=== PATIENT | female | born 1935 | race Caucasian/White ===

== ENCOUNTER → 2017-08-09 | Outpatient (CLI) | payer OTHER ==
[~2017-08-09] VITALS: Ht 165.1 cm; Wt 65.8 kg
[~2017-08-09] MED LIST: BIOTIN1000 MCG PO; CIPROFLOXACIN500 M1 PO; COZAAR100 MG PO; GLUCOPHAGE500 MG PO; HYDRALAZINE 10M10 MG PO; HYDROXYCHLOROQ200 M1 PO; INDAPAMIDE1.25 MG PO; MACROBID 100 M100 M1 PO; NORCO 5-325 TA1 EACH PO; ORADENT 0.1% DEN5 G1 TOP; PREVACID15 MG PO; PROBIOTIC1 EAC1 PO; PROTONIX40 M1 PO; PYRIDIUM200 MG PO; SIMVASTATIN20 MG PO; VITAMIN D31000 UNIT PO; ZOFRAN ODT4 MG PO
--- NOTE | ~2017-08-09 | P ---
[facility] [place] [address] PROCEDURE REPORT Name: ALINE GAMEZ Room #: REG MARTI Leanne.#: [id number] Admission: 08/09/17 Attend Phys: Drew Galdamez MD Discharge: Date of : 37 Report #: [id number] THIS REPORT FOR: //name// CC: Drew Garcias BRIEF HISTORY: The patient is an 81-year-old woman for screening colonoscopy. Last colonoscopy was more than 5 years ago. There is a questionable history of colon cancer in her brother in his 70s. She is not certain of the specific diagnosis. She also has had recurrent bouts of diverticulitis, with most recent episode in May of this past year. PREOPERATIVE DIAGNOSIS: Screening colonoscopy. POSTOPERATIVE DIAGNOSES: 1. Multiple colon polyps. 2. Moderately severe sigmoid diverticulosis coli. MEDICATIONS: Deep sedation with propofol per Anesthesia. SPECIMEN: 1. Polyp from hepatic flexure. 2. Polyp from splenic flexure. 3. Polyps x 2 at 40 cm. ESTIMATED BLOOD LOSS: 3 mL. PROCEDURE: Colonoscopy to cecum and terminal ileum with snare polypectomy and biopsy. FINDINGS: Prior to propofol sedation, the procedure of colonoscopy was discussed with the patient as well as potential risks and its complications. She indicates she understands and desires to proceed. DESCRIPTION OF PROCEDURE: With the patient in left lateral decubitus position, digital examination was completed which revealed no abnormalities. Subsequently, the [place] video colonoscope was introduced into the rectum and advanced under direct vision to the cecum. This was done with some difficulty as she had a difficult sigmoid colon which was fairly rigid. With some difficulty, we were able to advance the scope through the sigmoid colon into the proximal colon. The cecum was identified by the ileocecal valve and the appendiceal orifice. We were able to advance the tip of the scope to the mouth of the ileocecal valve, but could not cross the ileocecal valve due to looping of the scope. At that point, the scope was slowly withdrawn and careful circumferential views obtained. The prep was excellent. The mucosa was within normal limits, normal vascular pattern, normal light reflex. As we withdrew the [facility] [address] [place] [address] PROCEDURE REPORT Name: ALINE GAMEZ Room #: [facility]#: [id number] Admission: 08/09/17 Attend Phys: Drew Galdamez MD Discharge: Date of : 37 Report #: [id number] scope, she was noted to have normal appearing colonic mucosa. An occasional diverticulum was seen in the proximal colon, but extensive diverticular disease was not seen in the proximal colon. At the hepatic flexure, sessile 5-6 mm polyp was seen and removed by cold snare polypectomy. The scope was further withdrawn, and at splenic flexure, diminutive polyp seen and removed by biopsy. Upon further withdrawal of the scope, at 40 cm, two diminutive polyps were seen and removed by biopsy. Distally to this area, she was noted to have moderately severe diverticular disease without endoscopic evidence of diverticulitis. Again, it was noted that the sigmoid colon was fairly rigid and difficult to maneuver the scope. No active inflammatory disease was seen. Scope was withdrawn in the rectum and upon end view as well as retroflexed views, no abnormalities were seen. Scope was withdrawn. The patient tolerated the procedure well. CONDITION OF THE PATIENT UPON DISCHARGE: Following procedure, the patient drowsy, arousable, conversant and will be discharged home when fully ambulatory. INSTRUCTIONS TO THE PATIENT AND FAMILY AT THE TIME OF DISCHARGE: Four small polyps had identified and removed as described above. We will follow up on the path. If 3 or more adenomas, she should return in 3 years, if one or two, consider 5 years, if none, 10 years. However, as far as 5 and10 years, based on the patient's clinical status at that point in the future. She does have a fairly rigid sigmoid colon. She reports multiple episodes of diverticulitis. She was advised to have surgery, but has declined to do so at this point in time. We will see if we can obtain records from her previous admissions for diverticulitis, and I will be happy to see her in the office to further discuss. She does describe some discomfort. Constipation may be part of the problem. I suggest high fiber diet. I also suggest MiraLax daily as needed. I would wonder if adhesions from previous hysterectomy is a problem as well as she does have a fairly rigid sigmoid colon. <ELECTRONICALLY SIGNED> By: Drew Galdamez MD 08/09/17 1742 [id number] Drew Galdamez MD /nt
--- NOTE | ~2017-08-09 | S ---
[facility] [place] [address] SURGICAL PATH RPT PROCEDURE Name: CASS CARREON Room #: REG [facility] M.R.#: [id number] Admission: 08/09/17 Date of : 37 Discharge: Report #: [id number] Path Case #: [id number] PATHOLOGY REPORT COLLECTION DATE: 08/09/2017 RECEIVED DATE: 08/09/2017 SUBMITTING PHYS: Dr. Drew Galdamez OTHER PHYS: Dr. Chelsea Garcias SPECIMEN(S) RECEIVED: A.Hepatic flexure polyp B.Splenic flexure polyp C.Polyps at 40 cm x2 * * * * * * * * * * * * FINAL DIAGNOSIS: A. "Hepatic flexure polyp," biopsy: - Tubular adenoma; no high-grade dysplasia. B. "Splenic flexure polyp," biopsy: - Tubular adenoma; no high-grade dysplasia. C. "Polyps at 40 cm x 2," biopsy: - Tubular adenoma; no high-grade dysplasia. (CLW:mgrebecca; 08/11/2017) PATHOLOGIST: Chula Kidd M.D. REPORT ELECTRONICALLY SIGNED BY: Chula Kidd M.D. DATE/TIME: 08/11/2017 15:13 * * * * * * * * * * * * GROSS PATHOLOGY: A. Received in formalin labeled "Cass Carreon, polyp at hepatic flexure," are 4 segments of white to wall soft tissue measuring 1.4 x 0.3 x 0.3 cm in aggregate dimensions and ranging from 0.1 to 0.5 cm in maximum dimension. The specimen is submitted entirely in cassette A1. B. Received in formalin labeled "Cass Carreon, polyp at splenic flexure," are 2 segments of wall soft tissue measuring 0.6 x 0.2 x 0.2 cm in aggregate dimensions and ranging from 0.3 to 0.3 cm in maximum dimension. The specimen is submitted entirely in cassette B1. C. Received in formalin labeled "Cass Carreon, polyp at 40 cm," are 2 segments of wall soft tissue measuring 0.6 x 0.2 x 0.2 cm in aggregate dimensions and ranging from 0.2 to 0.4 cm in maximum dimension. The specimen is submitted entirely in cassette C1. (JOYCE; 08/10/2017) [address] [place] [address] SURGICAL PATH RPT PROCEDURE Name: CASS CARREON Room #: REG [facility]..#: [id number] Admission: 08/09/17 Date of : 37 Discharge: Report #: [id number] Path Case #: [id number] CLINICAL HISTORY: Diverticulitis, colon polyps, diverticulosis INITIAL CPT CODE(S): A; 84466 B; 12409 C; 36988 Professional services performed by [facility] at [address], [place] [address] Technical services performed by [facility] at [address] [place] [address], [address], [place] [address]. [facility] [address] [address] PHONE: [phone] DIRECTOR: Amanuel Alvarez M.D. * * * END OF REPORT * * *
== END | disposition home or self-care (01) ==
LOC: GI 08:52
DX: Z09 Encounter for follow-up examination after completed treatment for conditions other than malignant neoplasm (principal); K63.5 Polyp of colon; K57.30 Diverticulosis of large intestine without perforation or abscess without bleeding; I10 Essential (primary) hypertension; E11.9 Type 2 diabetes mellitus without complications; E78.00 Pure hypercholesterolemia, unspecified; K21.9 Gastro-esophageal reflux disease without esophagitis; M06.9 Rheumatoid arthritis, unspecified; Z90.49 Acquired absence of other specified parts of digestive tract; Z87.19 Personal history of other diseases of the digestive system; Z90.710 Acquired absence of both cervix and uterus; Z80.0 Family history of malignant neoplasm of digestive organs; Z88.2 Allergy status to sulfonamides; Z88.6 Allergy status to analgesic agent; Z88.5 Allergy status to narcotic agent; Z88.8 Allergy status to other drugs, medicaments and biological substances; Z79.899 Other long term (current) drug therapy; Z87.440 Personal history of urinary (tract) infections
CPT/HCPCS: 62110; 62900

== ENCOUNTER → 2020-10-03 | Outpatient (CLI) | payer OTHER, MEDICARE | LOC: SJCVC 11:07 | PROVIDERS: ATTEND Internal Medicine Cardiovascular Disease | DX: R94.31 Abnormal electrocardiogram [ECG] [EKG] (principal); E78.00 Pure hypercholesterolemia, unspecified; I10 Essential (primary) hypertension; E11.9 Type 2 diabetes mellitus without complications; M54.9 Dorsalgia, unspecified ==